=== PATIENT | female | born 1960 | race Hispanic/Latino ===

== ENCOUNTER 2018-07-14 04:31 | Emergency (ER) | payer SELFPAY ==
[~2018-07-14] VITALS: Ht 162.6 cm; Wt 113.4 kg
[~2018-07-14 04:31] MED LIST: HUMULIN-R100 UNITS/ SQ; KLONOPIN1 MG PO; NOVOLIN N100 UNIT/1 SQ; VASOTEC10 M1 PO; ZOLOFT100 MG PO
== END 2018-07-14 05:00 | disposition left against medical advice (07) ==
LOC: ER 04:31
DX: N89.8 Other specified noninflammatory disorders of vagina (principal)